=== PATIENT | male | born 1960 | race Caucasian/White ===

== ENCOUNTER 2016-08-20 16:07 | Emergency (ER) | payer OTHER ==
[~2016-08-20] VITALS: Ht 182.9 cm; Wt 149.0 kg
[~2016-08-20 16:07] MED LIST: ASCO500C PO; ASPI81CH5 CHEW; CLAR10TA7 PO; CRAN1000 PO; FISH1360 PO; HYDR-3533 PO; IBUP800T23 PO; LISI-363 PO; MMW SSP; NYST100010 TOP; ONETAB9 PO; PENI500T PO; PROT40TA PO; ULTR50TA PO; VITA100020 PO
[2016-08-20 16:16] VITALS: BP 158/80; PULSE 102; RESP 19; TEMP 97.9; O2SAT 96
[2016-08-20] MEDS: RESP: ALBUTEROL 2.5 MG/IPRATROPIUM 0.5 MG NEB (SCH) INH (16:58)
[2016-08-20] MEDS ORDERED: PANT40TA3 PO (16:58)
[2016-08-20] MEDS ORDERED: NYSTPOW TOPICAL (16:58)
[2016-08-20] MEDS ORDERED: LISI-515 PO (16:58)
[2016-08-20] MEDS ORDERED: HYDR-3533 PO (16:58)
[2016-08-20] MEDS ORDERED: VITA100018 PO (16:59)
[2016-08-20] MEDS ORDERED: OMEG5CAP PO (16:59)
[2016-08-20] MEDS ORDERED: ASCO500C PO (16:59)
[2016-08-20] MEDS ORDERED: MULT-135 PO (16:59)
[2016-08-20] MEDS ORDERED: VITA100T15 PO (16:59)
[2016-08-20] MEDS ORDERED: ASPI1TAB69 PO (16:59)
[2016-08-20] MEDS ORDERED: MIRA3350 PO (16:59)
[2016-08-20 17:00] VITALS: BP 121/63; PULSE 108; RESP 16; O2SAT 98
[2016-08-20] MEDS ORDERED: methylPREDNISolone SOD SUCC 125 MG/2 ML VIAL IVP ONE (17:00)
[2016-08-20] MEDS ORDERED: SODIUM CHLORIDE 0.9% FLUSH 5 ML FLUSH IVF PRN (17:00)
[2016-08-20] MEDS ORDERED: cranberry PO (17:01)
--- NOTE | 2016-08-20 17:08 | RADHPO ---
EXAM DATE/TIME: 08/20/2016 16:54 [place] COMPARISON: No previous studies available for comparison. INDICATIONS : Cough, fever, and congestion for two weeks. MEDICAL HISTORY : Hypertension. SURGICAL HISTORY : None. ENCOUNTER: Initial ACUITY: 2 weeks PAIN SCORE: 0/10 LOCATION: Bilateral chest FINDINGS: A single view of the chest demonstrates the lungs to be symmetrically aerated without evidence of mas s, infiltrate or effusion. The cardiomediastinal contours are unremarkable. Osseous structures are intact. CONCLUSION: No acute disease. Chris Restrepo MD on August 20, 2016 at 17:06 Board Certified Radiologist. This report was verified electronically.
[2016-08-20 17:23] LABS: AUTOMATED NEUTROPHIL # 5.2 TH/MM3 (1.8-7.7); BASOPHIL # 0.1 TH/MM3 (0-0.2); BASOPHIL % 1.1 % (0.0-2.0); EOSINOPHIL % 0.4 % (0.0-4.0); HEMATOCRIT 43.8 % (39.0-51.0); HEMO FLAGS DIFF FINAL; LYMPH % 26.3 % (9.0-44.0); LYMPHOCYTE # 2.2 TH/MM3 (1.0-4.8); MEAN CELL VOLUME 90.4 FL (80.0-100.0); MEAN CORPUSCULAR HEMOGLOBIN 30.7 PG (27.0-34.0); MEAN CORPUSCULAR HGB CONC 33.9 % (32.0-36.0); MONO % 9.9 % (0.0-8.0); NEUT % 62.3 % (16.0-70.0); PLATELET COUNT 191 TH/MM3 (150-450); RED BLOOD COUNT 4.84 MIL/MM3 (4.50-5.90); RED CELL DISTRIBUTION WIDTH 12.4 % (11.6-17.2); WHITE BLOOD COUNT 8.3 TH/MM3 (4.0-11.0)
--- NOTE | 2016-08-20 17:28 | PD ---
HPI . Cough and congestion Chief Complaint: Cold / Flu Symptoms Time Seen by Provider: 16:43 Travel History International Travel<30 days: No Contact w/Intl Traveler<30days: No Traveled to known affect area: No History of Present Illness HPI Patient presents with a two-week history of cough, wheezing, congestion. It is associated with a fever. He states that he had a temperature in the last couple days of 102. He states that the symptoms seemed to have moved from his chest to his head. He did not have symptoms of a head cold at the onset. However, he now has nasal congestion and green rhinorrhea. He states that he has been seen by his primary care provider who treated him with a Z-Justen. His symptoms have worsened rather than improved following the Z-Justen. He has completed it. [id number]: Head and chest DURATION: 2 weeks TIMING: The chest congestion and wheezing have been pretty consistent. The upper respiratory symptoms are new. MODIFYING FACTORS: Not improved with a Z-Justen PFSH Past Medical History High Cholesterol: Yes Diminished Hearing: No GERD: Yes (acid reflux) Hypertension: Yes Medical other: Yes (chronic back pain) Tetanus Vaccination: < 5 Years Influenza Vaccination: Yes ?: Not Social History Alcohol Use: Yes (RARE-beer) Tobacco Use: No Substance Use: No Allergies-Medications (Allergen,Severity, Reaction): Coded Allergies: Ciprofloxacin (Verified Allergy, Severe, 08/20/16) Morphine (Verified Allergy, Severe, 08/20/16) Tetanus Toxoid (Verified Allergy, Intermediate, HIVES, 08/20/16) Latex (Verified Allergy, Mild, RASH, 08/20/16) Reported Meds & Prescriptions Reported Meds & Active Scripts Active Reported [cranberry ] 3,600 Mg PO DAILY Miralax (Polyethylene Glycol 3350) Unknown Strength Pow Unknown Dose PO DIRECTED PRN Vitamin C (Ascorbic Acid) 500 Mg Cap 500 Mg PO DAILY Vitamin B12 (Cyanocobalamin) 100 Mcg Tab 1,000 Mg PO DAILY Multi Vitamin (Multiple Vitamin) 1 Tab Tab 1 Tab PO DAILY Vitamin D3 (Cholecalciferol) 1,000 Unit Tab 1,000 Units PO DAILY Fish Oil 1200 mg (Bascom-3 Fatty Acids) 1 Cap Cap 1 Cap PO DAILY Aspirin 81 Mg Tabdr 81 Mg PO DAILY Lortab (Hydrocodone-Acetaminophen) 5-325 Mg Tab 1 Tab PO Q12HR PRN Nystatin Topical (Nystatin) Unknown Strength Powd 30 Gm TOPICAL DAILY Pantoprazole (Pantoprazole Sodium) 40 Mg Tab 40 Mg PO DAILY Lisinopril 20 Mg Tab 20 Mg PO DAILY Review of Systems Except as stated in HPI: all other systems reviewed are Neg General / Constitutional: Positive: Fever, Chills Eyes: No: Drainage, Redness HENT: Positive: Rhinitis, Rhinorrhea, Congestion Respiratory: Positive: Cough, Shortness of Breath, Wheezing Physical Exam Narrative GENERAL: Obese man who is in no acute distress. SKIN: Warm and dry. HEAD: Atraumatic. Normocephalic. EYES: Pupils equal and round. ENT: No nasal bleeding or discharge. Mucous membranes pink and moist. He has edema of the mucosa with clear rhinorrhea. NECK: Trachea midline. Positive cervical lymphadenopathy. CARDIOVASCULAR: Regular rate and rhythm. RESPIRATORY: No accessory muscle use. He does have some coarse expiratory wheezing. GASTROINTESTINAL: Abdomen soft, non-tender, nondistended. MUSCULOSKELETAL: No obvious deformities. No edema. NEUROLOGICAL: Awake and alert. No obvious cranial nerve deficits. Motor grossly within normal limits. Normal speech. PSYCHIATRIC: Appropriate mood and affect; insight and judgment normal. Data Data Last Documented VS Vital Signs Date Time Temp Pulse Resp B/P Pulse Ox O2 Delivery O2 Flow Rate FiO2 08/20/16 16:46 93 16 97 Room Air 08/20/16 16:16 97.9 158/80 Orders Complete Blood Count With Diff (08/20/16 16:49) Basic Metabolic Panel (Bmp) (08/20/16 16:49) Iv Access Insert/Monitor (08/20/16 16:49) Chest, Single Ap (08/20/16 16:49) Sodium Chloride 0.9% Flush (Ns Flush) (08/20/16 17:00) Methylprednisolone So Succ Inj (Solumedr (08/20/16 17:00) Albuterol-Ipratropium Neb (Duoneb Neb) (08/20/16 17:00) Labs Laboratory Tests Test 08/20/16 17:05 White Blood Count 8.3 TH/MM3 Red Blood Count 4.84 MIL/MM3 Hemoglobin 14.9 GM/DL Hematocrit 43.8 % Mean Corpuscular Volume 90.4 FL Mean Corpuscular Hemoglobin 30.7 PG Mean Corpuscular Hemoglobin 33.9 % Concent Red Cell Distribution Width 12.4 % Platelet Count 191 TH/MM3 Mean Platelet Volume 6.9 FL Neutrophils (%) (Auto) 62.3 % Lymphocytes (%) (Auto) 26.3 % Monocytes (%) (Auto) 9.9 % Eosinophils (%) (Auto) 0.4 % Basophils (%) (Auto) 1.1 % Neutrophils # (Auto) 5.2 TH/MM3 Lymphocytes # (Auto) 2.2 TH/MM3 Monocytes # (Auto) 0.8 TH/MM3 Eosinophils # (Auto) 0.0 TH/MM3 Basophils # (Auto) 0.1 TH/MM3 CBC Comment DIFF FINAL Differential Comment Sodium Level 140 MEQ/L Potassium Level 4.3 MEQ/L Chloride Level 104 MEQ/L Carbon Dioxide Level 27.7 MEQ/L Anion Gap 8 MEQ/L Blood Urea Nitrogen 14 MG/DL Creatinine 1.10 MG/DL Estimat Glomerular Filtration 69 ML/MIN Rate Random Glucose 89 MG/DL Calcium Level 8.3 MG/DL MDM Medical Decision Making Medical Screen Exam Complete: Yes Emergency Medical Condition: Yes Differential Diagnosis Differential diagnosis includes but is not limited to viral respiratory illness , bronchitis, pneumonia, allergies, CHF, asthma/COPD. Narrative Course Patient presents with a two-week history of chest congestion. He has been running a fever within the last couple of days. Therefore, he needs to be evaluated for pneumonia. Last Impressions Chest X-Ray 08/20/16 1285 Signed Impressions: Service Date/Time: Saturday, August 20, 2016 16:54 - CONCLUSION: No acute disease. Chris Restrepo MD The chest x-ray was independently viewed by me. CBC & BMP Diagram 08/20/16 17:05 Patient feels better following nebs. Diagnosis Primary Impression: Bronchitis Additional Impression: Sinusitis Qualified Code: J01.01 - Acute recurrent maxillary sinusitis Patient Instructions: Acute Bronchitis (DC), General Instructions, Sinusitis ( ED) Additional Instructions: I recommend the use of a Neti Pot or saline nasal spray. You may use a nasal spray such as Afrin for up to 3 days as needed for nasal congestion. You may take an [id number]-uvocuhb antihistamine such as Zyrtec, Flora or Claritin as needed for runny secretions. You may take pseudoephedrine as needed for congestion. You will need to sign for this at the pharmacy. You may take plain Mucinex, 1200 mg twice a day as needed for thick secretions. Motrin as needed for fever and body aches. Med/Other Pt SpecificInfo: Prescription(s) given Scripts Amoxicillin-Clavulanate (Augmentin)875-125 mg Cej294 Mg PO BID 10 Days Ref 0 not for use in CrCl <30 ml/min. Prov:Mer Easton MD 08/20/16 Hydrocodone-Chlorpheniramine 12 HR Liq (Tussionex Pennkinetic Ext 12 HR Liq)10- 8 Mg/5 Ml Susp5 Ml PO Q12H PRN (COUGH AND/OR COLD SYMPTOMS) #60 ML Ref 0 Prov:Mer Easton MD 08/20/16 Prednisone (48) 10 mg tab Dose Pack 10 Mg Dspk10 Mg PO DIRECTED #1 DSPK Ref 0 Prov:Mer Easton MD 08/20/16 Albuterol 18 GM Inh (Ventolin Hfa 18 GM Inh)90 Mcg/Act Aer2 Puff INH Q4H PRN ( SHORTNESS OF BREATH) #1 INHALER Ref 0 Prov:Mer Easton MD 08/20/16 Disposition: 01 DISCHARGE HOME Condition: Stable Mer Easton MD Aug 20, 2016 17:28
[2016-08-20 17:29] LABS: POTASSIUM 4.3 MEQ/L (3.5-5.1)
[2016-08-20 17:34] LABS: BICARBONATE 27.7 MEQ/L (21.0-32.0)
[2016-08-20] MEDS ORDERED: AUGM875T PO (17:49)
[2016-08-20] MEDS ORDERED: PRED10PA2 PO (17:49)
[2016-08-20] MEDS ORDERED: TUSSSUS2 PO (17:49)
[2016-08-20] MEDS ORDERED: VENTAER INH (17:49)
[2016-08-20 18:16] VITALS: BP 111/63
[2016-08-21] MEDS ORDERED: CRAN600T PO (11:12)
== END 2016-08-20 18:39 | disposition home or self-care (01) ==
LOC: PHED 16:07
DX: J40 Bronchitis, not specified as acute or chronic (principal); J32.9 Chronic sinusitis, unspecified; E78.00 Pure hypercholesterolemia, unspecified; I10 Essential (primary) hypertension; K21.9 Gastro-esophageal reflux disease without esophagitis
CPT/HCPCS: 71010; 80048; 85025; 94640; 94664; 96374; 99283; J2930

== ENCOUNTER 2017-07-01 01:00 | Emergency (ER) | payer OTHER, MEDICAID ==
[~2017-07-01] VITALS: Ht 185.4 cm; Wt 150.0 kg
[~2017-07-01 01:00] MED LIST changes: +ASPI1TAB69 PO; -ASPI81CH5 CHEW; +AUGM875T PO; -CLAR10TA7 PO; -CRAN1000 PO; +CRAN600T PO; +CYAN100 PO; -FISH1360 PO; -IBUP800T23 PO; -LISI-363 PO; +LISI-515 PO; +MIRA3350 PO; -MMW SSP; +MULT-135 PO; -NYST100010 TOP; +NYSTPOW TOPICAL; +OMEG5CAP PO; -ONETAB9 PO; +PANT40TA3 PO; -PENI500T PO; +PRED10PA2 PO; -PROT40TA PO; +TUSSSUS2 PO; -ULTR50TA PO; +VENTAER INH; +VITA100018 PO; -VITA100020 PO
[2017-07-01 01:02] VITALS: BP 144/76; PULSE 87; RESP 18; TEMP 97.5; O2SAT 97
[2017-07-01] MEDS ORDERED: PRED10PA2 PO (01:33)
[2017-07-01] MEDS ORDERED: DIPH25CA PO (01:33)
--- NOTE | 2017-07-01 01:33 | PD ---
HPI Chief Complaint: Skin Problem Time Seen by Provider: 01:29 Travel History International Travel<30 days: No Contact w/Intl Traveler<30days: No Traveled to known affect area: No History of Present Illness HPI 57-year-old male patient presents to the ER today, states that several days ago he was working on getting crispness lights down and fell into the bushes, states that he is not sure whether he got into something he is allergic to in the bushes, was only wearing shorts and is having a red rash that he noted today allover his arms and abdomen area. He denies any chest pains, trouble breathing, any rashes to palm or feet, fevers, or any other issues. He has had no difficulty with throat swelling or difficulty swallowing. He is not sure whether it is that or the fact that he change his laundry detergent. He thinks he may have an allergic reaction. Modifying Factors: None Associated Signs & Symptoms: Rash to the trunk and arm areas Risk Factors: None PFSH Past Medical History High Cholesterol: Yes Diminished Hearing: No GERD: Yes (acid reflux) Hypertension: Yes Inguinal Hernia: Yes (bilat repair) Tetanus Vaccination: Never Vaccinated Influenza Vaccination: Yes Past Surgical History Abdominal Surgery: Yes (bilat groin hernia repair, umbilical hernia repair) Cholecystectomy: Yes Oral Surgery: Yes (nose) Tonsillectomy: Yes Social History Alcohol Use: Yes (RARE-beer) Tobacco Use: No Substance Use: No Allergies-Medications (Allergen,Severity, Reaction): Coded Allergies: ciprofloxacin (Verified Allergy, Severe, 07/01/17) morphine (Verified Allergy, Severe, 07/01/17) tetanus toxoid, adsorbed (Verified Allergy, Intermediate, HIVES, 07/01/17) latex (Verified Allergy, Mild, RASH, 07/01/17) Reported Meds & Prescriptions Reported Meds & Active Scripts Active Tussionex Pennkinetic Ext 12 HR Liq (Hydrocodone-Chlorpheniramine 12 HR Liq) 10- 8 Mg/5 Ml Susp 5 Ml PO Q12H PRN Ventolin Hfa 18 GM Inh (Albuterol Sulfate) 90 Mcg/Act Aer 2 Puff INH Q4H PRN Reported Miralax Powder (Polyethylene Glycol 3350 Powder) Unknown Strength Pow Unknown Dose PO DIRECTED PRN Vitamin B12 (Cyanocobalamin) 100 Mcg Tab 1,000 Mg PO DAILY Vitamin D3 (Cholecalciferol) 1,000 Unit Tab 1,000 Units PO DAILY Pantoprazole (Pantoprazole Sodium) 40 Mg Tab 40 Mg PO DAILY Lisinopril 20 Mg Tab 20 Mg PO DAILY Review of Systems Except as stated in HPI: all other systems reviewed are Neg Physical Exam Narrative GENERAL: Well-developed middle age white male patient currently none acute distress. Awake and oriented 3. SKIN: Focused skin assessment warm/dry. There is a diffuse erythematous blanching rash and plaques on the trunk and arms. Nontender to palpation. No notable rashes on the palms or soles. HEAD: Atraumatic. Normocephalic. EYES: Pupils equal and round. No scleral icterus. No injection or drainage. ENT: No nasal bleeding or discharge. Mucous membranes pink and moist. NECK: Trachea midline. No JVD. Supple. CARDIOVASCULAR: Regular rate and rhythm. No murmur appreciated. RESPIRATORY: No accessory muscle use. Clear to auscultation. Breath sounds equal bilaterally. GASTROINTESTINAL: Abdomen soft, non-tender, nondistended. Hepatic and splenic margins not palpable. MUSCULOSKELETAL: No obvious deformities. No clubbing. No cyanosis. No edema. NEUROLOGICAL: Awake and alert. No obvious cranial nerve deficits. Motor grossly within normal limits. Normal speech. PSYCHIATRIC: Appropriate mood and affect; insight and judgment normal. Data Data Last Documented VS Vital Signs Date Time Temp Pulse Resp B/P (MAP) Pulse Ox O2 Delivery O2 Flow Rate FiO2 07/01/17 01:19 84 18 07/01/17 01:02 97.5 144/76 (98) 97 MDM Medical Decision Making Medical Screen Exam Complete: Yes Emergency Medical Condition: Yes Medical Record Reviewed: Yes Differential Diagnosis Allergic reaction versus viral exanthem Narrative Course At this point, my plan would be to treat him with Benadryl and steroid medication. Follow-up with primary care physician. Return for any worsening and rash appearance. The plan has been discussed with him and he states understanding. Diagnosis Primary Impression: Allergic reaction Med/Other Pt SpecificInfo: Prescription(s) given Scripts Diphenhydramine (Diphenhydramine) 25 Mg Cap 25 MG PO Q6H Y for ALLERGIES, #20 CAP 0 Refills Prov: Yohan Richard MD 07/01/17 Prednisone (48) 10 mg tab Dose Pack (Prednisone (48) 10 mg tab Dose Pack) 10 Mg Dspk 10 MG PO DIRECTED for Inflammation, #1 DSPK 0 Refills Prov: Yohan Richard MD 07/01/17 Disposition: 01 DISCHARGE HOME Condition: Stable Yohan Richard MD Jul 01, 2017 01:33
== END 2017-07-01 01:45 | disposition home or self-care (01) ==
LOC: PHED 01:00
DX: R21 Rash and other nonspecific skin eruption (principal); T78.40XA Allergy, unspecified, initial encounter; E78.00 Pure hypercholesterolemia, unspecified; I10 Essential (primary) hypertension; K21.9 Gastro-esophageal reflux disease without esophagitis
CPT/HCPCS: 99284